=== PATIENT | female | born 1970 | race Caucasian/White ===

== ENCOUNTER → 2017-10-02 | Outpatient (CLI) | payer OTHER ==
[~2017-10-02] MED LIST: OMEP20ER; TRAM50; Vitamin D400 UNI2; ZOLP6.25
[2017-10-02 16:21] LABS: Bilirubin, Urine Neg (Neg); Blood, Urine 2+ (Neg); Glucose Qualitative, Urine Neg (Neg); Ketones, Urine 1+ (Neg); Leukocyte Esterase, Urine 3+ (Neg); Nitrite, Urine Pos (Neg); Protein, Urine 2+ (Neg); Specific Gravity, Urine 1.015 (1.003-1.022); Urobilinogen, Urine 1+ (Normal)
[2017-10-02 16:43] LABS: Appearance, Urine Cloudy (Clear); Color, Urine Yellow (P-Yellow)
[2017-10-02 16:45] LABS: White Blood Cells, Urine 50-100 /hpf (0-5)
[2017-10-02 16:46] LABS: Bacteria Many /hpf; Squamous Epithelial Cells Few /hpf (Few)
== END | disposition home or self-care (01) ==
LOC: LAB SHORT 14:43 → LAB EV 14:43
PROVIDERS: Nurse Practitioner Family
DX: R30.0 Dysuria (principal)
CPT/HCPCS: 81001

== ENCOUNTER 2019-05-03 07:50 | Day surgery (SDC) | payer OTHER ==
[~2019-05-03] VITALS: Ht 165.1 cm; Wt 51.8 kg
[~2019-05-03 07:50] MED LIST changes: +Bupropion Xl150 MG PO; +ESTR2 PO; +LEVO-T88 MC1 PO; +META800; +PROG100 PO; +VITAMIN D32000 UNI3 PO; +ZOLP5 PO
--- NOTE | 2019-05-03 09:56 | NUR ---
05/03/19 0956 Yeny Carey MEGAN &NACL 3ML TOTAL USED FOR POLYP REMOVAL.
== END 2019-05-03 10:35 | disposition home or self-care (01) ==
LOC: ORSCSDS 07:50
PROVIDERS: Student in an Organized Health Care Education/Training Program
PROC: 0DBL8ZX Excision of Transverse Colon, Via Natural or Artificial Opening Endoscopic, Diagnostic (ICD-10-PCS; principal; 2019-05-03 09:00)
DX: Z12.11 Encounter for screening for malignant neoplasm of colon (principal); Z83.71 Family history of colonic polyps; D12.0 Benign neoplasm of cecum; D12.3 Benign neoplasm of transverse colon; E03.9 Hypothyroidism, unspecified; F32.9 Major depressive disorder, single episode, unspecified; Z79.899 Other long term (current) drug therapy
CPT/HCPCS: 88305; J2405; J2704; J7120